=== PATIENT | female | born 1980 | race Caucasian/White ===

== ENCOUNTER → 2021-04-01 00:37 | Outpatient (CLI) | payer BC, SELFPAY ==
[2021-04-01 19:26] LABS: SARS-CoV-2 RNA PCR Negative
== END ==
PROVIDERS: Visit Provider Obstetrics & Gynecology
DX: Z01.812 Encounter for preprocedural laboratory examination (principal); Z20.822 Contact with and (suspected) exposure to COVID-19
CPT/HCPCS: C9803; U0003; U0005

== ENCOUNTER 2021-04-03 01:25 | Day surgery (SDC) | payer BC, SELFPAY ==
[2021-03-31 17:03] VITALS: BMI 20.1
--- NOTE | 2021-04-02 17:13 | PM.IMHP ---
H&P: HPI History of Present Illness Date/Time: 04/02/21 17:13 40-year-old 3 para 2 0 now 1 2 female presents at 10 weeks gestation by last menstrual period. She had serial ultrasounds which shows no pole no significant growth over the past 2 weeks. Also with some spotting and cramping. Had deferred any intervention to this point but now desires suction curettage. Chief Complaint: Missed in 1st trimester Review of Systems Review of Systems: All systems reviewed & are unremarkable except as noted in HPI and below PMFSH Social History Social History Smoking packs per day: 1 Smoking cigarettes per day: 20.0 Years smoked: 15 Smoking pack-years: 15.00 Smoking status: Former smoker Tobacco type: cigarettes and e-cigarettes/vaping Second hand tobacco smoke exposure: No Additional smoking assessment comments: currently vape w/ nicotine Substance use: never Spiritual care concerns: No Meds Home Medications and Allergies Home Medications Medication Instructions Recorded Confirmed Type sertraline 50 mg PO DAILY 03/31/21 03/31/21 History Allergies Allergy/AdvReac Type Severity Reaction Status Date / Time promethazine Allergy Mild Jittery Verified 03/31/21 17:00 Exam Const: General: cooperative Resp: Effort & Inspection: normal respiratory effort Auscultation: clear to auscultation bilaterally Cardio: Rate: regular rate Rhythm: regular rhythm GI: Inspection: normal to inspection Auscultation: normal bowel sounds : External Female Exam: normal external appearance Speculum Exam - Vagina: vaginal bleeding Speculum Exam - Cervix: normal appearance of the cervix Bimanual exam- vagina & uterus: enlarged (8-10 week) Bimanual Exam- Adnexa, other: normal adnexae Assessment and Plan Assessment and plan (1) Missed : Code(s): O02.1 - Missed Status: Acute Additional Plan Proceed with suction curettage.
[2021-04-03 06:10] VITALS: BP 85/52; PULSE 64; RESP 16; TEMP 36.8; O2SAT 100
[2021-04-03] MEDS: LACTATED RINGERS 1,000 ML 30 ML IV CONT (06:30)
--- NOTE | 2021-04-03 06:34 | P.PNAN_ITS ---
Anes - Initial Pre Proc Eval Procedure: Operation Date: 04/03/21 07:30 Proposed Procedures p Suction Dilatation and Curettage - Gurvinder Lopez MD Date/Time: 04/03/21 06:34 Surgeon: Gurvinder Lopez MD Pre Op Diagnosis: missed AB Patient Data Age: 40 Gender: F Height: 5 ft 6 in Weight: 56.7 kg Allergies Allergy/AdvReac Type Severity Reaction Status Date / Time promethazine AdvReac Mild Jittery Verified 04/03/21 06:10 Home Medications Medication Instructions Recorded Confirmed Type sertraline 50 mg PO DAILY 03/31/21 04/03/21 History Patient hx anesthesia problems: none Family hx anesthesia problems: none [facility] Past Medical History Medical History (Updated 04/03/21 @ 06:34 by Petey Luis MD) Depression Social History Social History Smoking packs per day: 1 Smoking cigarettes per day: 20.0 Years smoked: 15 Smoking pack-years: 15.00 Smoking status: Former smoker Tobacco type: cigarettes and e-cigarettes/vaping Second hand tobacco smoke exposure: No Additional smoking assessment comments: currently vape w/ nicotine Substance use: never Living arrangements: with family Spiritual care concerns: No Anes - Eval Final PreProcedure Day of Procedure 04/03/21 06:34 Patient weight: normal Heart: regular rate and rhythm Lungs: clear to auscultation Airway: Mallampati scale class II Neurological: alert and oriented Last oral intake: >/= 8 hours ASA classification: II Emergent: no Anesthetic plan: proceed Anesthesia type and monitoring: general GIVS and standard monitoring Informed Consent: The patient's anesthetic plan and its attendant risks and benefits were discussed with the patient/family/POA. Questions were solicited and answers provided to the satisfaction of the patient/family/POA.
[2021-04-03] MEDS: ACETAMINOPHEN 500 MG TABLET 1000 MG PO (07:00)
--- NOTE | 2021-04-03 07:11 | WPDHPUPDATE1 ---
History and Physical Update Update Date/Time: 04/03/21 07:11 History and Physical has been reviewed, including an updated exam of the patient. There are NO changes in the patient's condition. Risks, benefits, and alternatives have been discussed and questions answered. Patient agrees to proceed with procedure.
--- NOTE | 2021-04-03 07:42 | PM.OP ---
Procedure Note - Brief Procedure Note - Brief Date of procedure: 04/03/21 Pre-op diagnosis: missed AB first trimester missed Post-op diagnosis: same Procedure performed: Suction curettage Description of procedure: Patient prepped in usual manner for this procedure. Cervix dilated to allow the 8mm curette to be placed. Suction curetting was then used to remove moderate amount of retained tissue. Sharp curette throughout with no remaining tissue in no significant bleeding. At this point seizure was considered terminated patient was sent to recovery room in stable condition. Anesthesia: GLMA Surgeon: Gurvinder Lopez MD Estimated blood loss (mL): 50 Drains: No Packing: No Pathology: yes Complications: No immediate complications Condition: stable Disposition: PACU Findings: Moderate amount of retained products of conception
[2021-04-03 07:45] VITALS: BP 90/54; PULSE 58; RESP 12; O2SAT 96
[2021-04-03 08:15] VITALS: BP 92/52; PULSE 56; RESP 12
[2021-04-03] MEDS: oxyCODONE HCL (*CRX) 5 MG TAB IR PO (08:20)
[2021-04-03 08:45] VITALS: BP 92/72; PULSE 57; RESP 20
[2021-04-03 08:55] VITALS: BP 97/60; PULSE 58; RESP 20
== END 2021-04-03 09:00 | disposition home or self-care (01) ==
PROVIDERS: Visit Provider Obstetrics & Gynecology
PROC: (CPT 59820; principal; 2021-04-03 07:30)
DX: O02.1 Missed abortion (principal); F32.9 Major depressive disorder, single episode, unspecified; F17.290 Nicotine dependence, other tobacco product, uncomplicated
CPT/HCPCS: 59820; 88305; A9270; J2250; J2704; J3010; J7120

== ENCOUNTER 2023-08-04 01:45 | Day surgery (SDC) | payer BC, SELFPAY ==
[2023-08-01 11:30] VITALS: BMI 20.9
--- NOTE | 2023-08-01 11:35 | PC.NURSE ---
Report to the Outpatient Waiting Room, entrance under the green pavilion located off [facility], at time 1300 on date 08/04/23. Planned Procedure Time: 1500. Time changes happen often and if your time is changed the preop area will call you the afternoon before. - You and your visitor will be asked to self-screen and do not enter if you have any COVID symptoms. - A mask is optional within the hospital at this time. Patients may have clear liquids (water, carbonated beverages, clear teas, apple juice) until 3 hours prior to surgery with a maximum of 20 ounces. - No food from midnight until time of surgery Take the following medications with a SIP of water the morning of surgery: SERTRALINE DO NOT STOP ANY OF YOUR OTHER PRESCRIPTION MEDICATIONS PRIOR TO SURGERY ?EXCEPT THE FOLLOWING Medications to discontinue per physician: VITAMINS/SUPPLEMENTS Date to take last dose: NO MORE UNTIL AFTER SURGERY Please no make-up, nail serbian, hairspray, perfume, deodorant, or body powder the day of surgery. No jewelry (including any body piercings) or valuables the day of surgery, leave them at home. Please take a shower or bath the night before, or the morning of, surgery with an antibacterial soap. Wear comfortable, loose fitting clothing. - Jewelry must be removed prior to entering the operating room. Rings and piercings that are not removed may be cut off. - The hospital will not accept responsibility for valuables. - Please leave all valuables, including medications, at home the day of surgery. If you are going home after surgery, a licensed ready mix truck driver must drive you home. - NO public transportation without another adult if you receive anesthesia. - We recommend that an adult stay with you for 24 hours following discharge. - We also recommend that you do not drive, make important decision, drink alcoholic beverages, or take any drugs that were not prescribed by your health care provider for at least 24 hours after your discharge time. Follow any additional instructions given to you from your surgeon. If you or anyone in your household have experienced Covid symptoms in the past week, please notify your surgeon or the nurse liaison at the phone number below for possible testing. Telephone instructions given to PT - DEONNA RENTERIA and asked if any additional questions and then verbalized understanding. Patient advised to call surgeon office or pre surgery nurse liaison [phone] if any additional questions.
--- NOTE | 2023-08-04 09:05 | PM.IMHP ---
H&P: HPI History of Present Illness Date/Time: 08/04/23 09:05 Chief Complaint: retained products of conception Narrative: 43-year-old female who presents for suction D&C for retained products of conception. Patient had a planned in May. Patient states she underwent elective at the [facility]. Patient states she had an outpatient procedure performed. Patient never had spontaneous return of menses. Patient states she had a faintly positive test at home. Serum beta hCG levels were found to be positive but trending downward. Pelvic ultrasound showed possible retained products of conception. Recommended repeat D&C for management of possible retained products Review of Systems Cardiovascular: Cardiovascular: Denies chest pain, Denies leg edema, Denies palpitations, Denies dyspnea and Denies dyspnea on exertion Respiratory: Respiratory: Denies cough, Denies dyspnea and Denies dyspnea on exertion Gastrointestinal: Gastrointestinal: Denies abdominal pain, Denies constipation, Denies diarrhea, Denies nausea and Denies vomiting Genitourinary: Genitourinary: Denies hematuria, Denies urinary frequency, Denies dysuria, Denies pelvic pain, Denies urinary incontinence and Denies vaginal discharge Neurologic: Reports system reviewed and no additional complaints, except as documented Psychiatric: Psychiatric: Reports no additional psychiatric complaints Endocrine: Endocrine: Denies palpitations PMFSH Past Medical History Medical History Abnormal Pap smear of cervix 2004 + hpv Anxiety Depression Ectopic , tubal (09/01/15) HPV in female Infertility Kidney stones Miscarriage 03/04/17 04/03/21 Screening mammogram, encounter for Vaginal delivery 01/08/17 Joslyn hydronephrosis of (L) kidney, duplex collecting system Surgical History Surgical History History of dilation and curettage 08/29/17 hscope d&c/suction currettage--POC 04/03/21 suction d&c History of elective x3 History of hemorrhoidectomy (08/29/17) History of laparoscopy (~2010) for infertility History of lithotripsy 1999 & 2013 History of surgery on integumentary structure (~1984) oil duct cell removed from face History of unilateral salpingectomy (09/01/15) lscope (R) salpingectomy for ectopic Family History Family History Grandparent Heart disease maternal grandmother Malignant neoplasm of lung maternal grandmother Malignant neoplasm of skin paternal grandfather Renal failure syndrome maternal grandfather Malignant lymphoma paternal grandmother Father Malignant neoplasm of skin Social History Social History Smoking packs per day: 1 Smoking cigarettes per day: 20.0 Years smoked: 15 Smoking pack-years: 15.00 Smoking status: Current every day smoker Tobacco type: e-cigarettes/vaping Second hand tobacco smoke exposure: No Additional smoking assessment comments: currently vape w/ nicotine Alcohol intake: never Substance use: never Substance use type: does not use Living arrangements: with family Additional living arrangements comments: 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 boulardii)) loratadine 10 mg
--- NOTE | 2023-08-04 09:08 | WPDHPUPDATE1 ---
History and Physical Update Update Date/Time: 08/04/23 09:08 History and Physical has been reviewed, including an updated exam of the patient. There are NO changes in the patient's condition. Risks, benefits, and alternatives have been discussed and questions answered. Patient agrees to proceed with procedure.
[2023-08-04 13:17] VITALS: BP 104/59; PULSE 75; RESP 16; TEMP 36.7; O2SAT 99
[2023-08-04] MEDS: LACTATED RINGERS 1,000 ML 30 ML IV CONT (13:50)
[2023-08-04] MEDS: ACETAMINOPHEN 500 MG TABLET 1000 MG PO (13:51)
[2023-08-04] MEDS: DOXYCYCLINE 100 MG/NS 100 ML 100 MG/100 ML BAG IVPB (13:52)
--- NOTE | 2023-08-04 14:23 | WPDANESEPPF ---
Anes - Initial Pre Proc Eval Procedure: Operation Date: 08/04/23 15:00 Proposed Procedures p Suction Dilation and Curettage - Montana Vuong MD Date/Time: 08/04/23 14:23 Surgeon: Montana Vuong MD Pre Op Diagnosis: Missed Ab Patient Data Age: 43 Gender: F Height: 1.68 m Weight: 59 kg Allergies Allergy/AdvReac Type Severity Reaction Status Date / Time promethazine AdvReac Mild Jittery Verified 08/01/23 11:29 Home Medications Medication Instructions Recorded Confirmed Type sertraline 50 mg tablet 50 mg PO DAILY #90 tabs 12/29/21 08/01/23 Rx Saccharomyces boulardii 250 mg 250 mg PO DAILY 08/01/23 08/01/23 History capsule (Daily Probiotic (S. boulardii)) loratadine 10 mg tablet (Claritin) 10 mg PO DAILY 08/01/23 08/01/23 History Patient hx anesthesia problems: none Family hx anesthesia problems: none Results Review: All pre-operative results and documents have been reviewed as part of the pre-operative evaluation. [facility] Past Medical History Medical History Abnormal Pap smear of cervix 2004 + hpv Anxiety Depression Ectopic , tubal (09/01/15) HPV in female Infertility Kidney stones Miscarriage 03/04/17 04/03/21 Screening mammogram, encounter for Vaginal delivery 01/08/17 Joslyn hydronephrosis of (L) kidney, duplex collecting system Surgical History Surgical History History of dilation and curettage 08/29/17 hscope d&c/suction currettage--POC 04/03/21 suction d&c History of elective x3 History of hemorrhoidectomy (08/29/17) History of laparoscopy (~2010) for infertility History of lithotripsy 1999 & 2013 History of surgery on integumentary structure (~1984) oil duct cell removed from face History of unilateral salpingectomy (09/01/15) lscope (R) salpingectomy for ectopic Family History Family History Grandparent Heart disease maternal grandmother Malignant neoplasm of lung maternal grandmother Malignant neoplasm of skin paternal grandfather Renal failure syndrome maternal grandfather Malignant lymphoma paternal grandmother Father Malignant neoplasm of skin Social History Social History Smoking packs per day: 1 Smoking cigarettes per day: 20.0 Years smoked: 15 Smoking pack-years: 15.00 Smoking status: Current every day smoker Tobacco type: e-cigarettes/vaping Second hand tobacco smoke exposure: No Additional smoking assessment comments: currently vape w/ nicotine Alcohol intake: never Substance use: never Substance use type: does not use Living arrangements: with family Additional living arrangements comments: Occupation/Education: 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 Gender identity (if verbalized by the patient): Female Sexual Orientation (if Verbalized by the Patient): Straight or Heterosexual Spiritual care concerns: No Anes - Eval Final PreProcedure Day of Procedure 08/04/23 14:23 Patient weight: normal Heart: regular rate and rhythm Lungs: clear to auscultation Airway: Mallampati scale class II Neurological: alert and oriented Last oral intake: >/= 8 hours ASA classification: II Emergent: no Anesthetic plan: proceed Anesthesia type and monitoring: general GIVS and standard monitoring Results Review: All pre-operative results and documents have been reviewed as part of the pre-operative evaluation. Informed Consent: The patient's anesthetic plan and its attendant risks and benefits were discussed with the patient/family/POA. Questions were solicited and answers provided to the satisfaction of the patient/family/POA.
[2023-08-04] MEDS: KETOROLAC 30 MG/ML VIAL (*BKC) IV PUSH (15:05)
--- NOTE | 2023-08-04 15:13 | W.PM.PROC2 ---
Procedure Note - Detailed Date of Procedure 08/04/23 Pre-op Diagnosis Missed Ab Post-op Diagnosis Same Procedure Performed Suction Dilation & curettage Surgeon Montana Vuong MD Anesthesia General Indications suspected products of conception after elective on pelvic US Findings intrauterine products of conception Description of Procedure The patient was taken to the operating room after a missed had been noted on on transvaginal ultrasound. The risks, benefits and alternatives of the procedure were reviewed with the patient and informed consent was obtained. The patient was taken to the OR and anesthesia was noted to be adequate. The patient was placed in the dorsolithotomy position. Pelvic exam was performed with findings noted above. The patient was prepped and draped in the usual sterile fashion. Sterile speculum was placed in the vagina and the cervix was grasped with a tenaculum. The cervix was dilated further to allow for passage of a 8 mm suction curette. The 8 mm suction curette was gently advanced to the fundus, suction was activated, and the tip was rotated while being withdrawn to clear the uterus of products. This suction process was repeated 3 additional times due to the quantity of material in the uterus. The sharp curette was introduced and advanced to the fundus to remove any remaining products. The suction curette was reintroduced one final time to ensure all products had been removed. The tenaculum was removed. Good hemostasis was noted. Instrument, sponge, and sharp counts were correct. Patient tolerated the procedure well and was taken to the recovery room in stable condition. Estimated Blood Loss 10 Drains No Packing No Pathology Yes (products of conception ) Complications No immediate complications Condition Stable Disposition PACU [facility] Billing Surgery - Charge Forward: Surgery Billing
[2023-08-04 15:16] VITALS: BP 88/56; PULSE 71; RESP 16; O2SAT 99
[2023-08-04 15:45] VITALS: BP 97/59; PULSE 60; RESP 16; O2SAT 97
[2023-08-04] MEDS: DOXYCYCLINE HYCLATE 100 MG TABLET 200 MG PO (16:11)
[2023-08-04 16:13] VITALS: BP 96/62; PULSE 59; RESP 16
--- NOTE | 2023-08-04 16:15 | SUR.PHASEII ---
PATIENT IS RH NEG PER BLOOD BANK REPORT.
== END 2023-08-04 16:15 | disposition home or self-care (01) ==
PROVIDERS: PCP Hospitalist; Visit Provider Student in an Organized Health Care Education/Training Program
PROC: (CPT 59812; principal; 2023-08-04 15:00)
DX: O07.4 Failed attempted termination of pregnancy without complication (principal); F41.9 Anxiety disorder, unspecified; F32.A Depression, unspecified; F17.290 Nicotine dependence, other tobacco product, uncomplicated
CPT/HCPCS: 59812; 88305; A9270; J1885; J2250; J2704; J3010; J7120